=== PATIENT | female | born 1955 | race African-American/Black ===

== ENCOUNTER 2017-03-19 20:54 | Emergency (ER) | payer MEDICARE ==
[~2017-03-19] VITALS: Ht 157.5 cm; Wt 113.4 kg
[2017-03-19 21:05] VITALS: BP 117/70
[2017-03-19] MEDS ORDERED: Albuterol ud Inhalation ONE (22:24)
[2017-03-19] MEDS ORDERED: Ipratropium 0.02% Inh Soln 2.5ml UD ONE (22:24)
--- NOTE | 2017-03-19 22:26 | Emergency Room Report ---
History of Present Illness General Chief Complaint: Nosebleed Source: Patient Present Illness HPI Is a 61-year-old female with oxygen-dependent COPD. [facility] She presents with 2 day history of nosebleeding. Initially yesterday but more severe today. Mostly in the right side but now also the left. No other complaint. No nausea no vomiting. No trauma. No fever or chills. Not on anticoagulations. Allergies: Coded Allergies: No Known Allergies (Unverified , 03/19/17) Patient History Past Medical History: see triage record, old chart reviewed, HTN, COPD Past Surgical History: other Pertinent Family History: none Social History: Denies: drug use Last Menstrual Period: NA Now: No Immunizations: other Reviewed Nursing Documentation: PMH: Agreed, PSxH: Agreed Nursing Documentation-PMH Hx Hypertension: Yes - HYPERLIPIDEMIA Hx Pacemaker: Yes Hx COPD: Yes Review of Systems Eye: Denies: blurred vision, eye pain ENT: Denies: ear pain, nose congestion, throat swelling Respiratory: Denies: cough, shortness of breath Cardiovascular: Denies: chest pain, palpitations Gastrointestinal: Denies: abdominal pain, diarrhea, nausea, vomiting Musculoskeletal: Denies: back pain, joint pain Skin: Denies: rash Neurological: Denies: headache, numbness Endocrine: Denies: increased thirst, increased urine Hematologic/Lymphatic: Denies: easy bruising All Other Systems: negative except mentioned in HPI Physical Exam Vital Signs Date Time Temp Pulse Resp B/P Pulse Ox O2 Delivery O2 Flow Rate FiO2 03/19/17 20:49 117/70 vitals unremarkable. Sp02 EP Interpretation: reviewed, normal General Appearance: well appearing, no apparent distress, alert Head: normocephalic, atraumatic Eyes: bilateral eye EOMI, bilateral eye PERRL ENT: hearing grossly normal, normal pharynx, other - nose with large clots in right nare. Once removed, active bleeding anteriorly Neck: full range of motion, supple, no meningismus Respiratory: chest non-tender, normal breath sounds, decreased breath sounds Cardiovascular #1: regular rate, rhythm, no murmur Gastrointestinal: normal bowel sounds, non tender, no mass, no organomegaly, no bruit, non-distended Musculoskeletal: back normal, normal range of motion Psychiatric: mood/affect normal Skin: warm/dry Procedures Additional Procedure Procedure Narrative Procedure: Nasal packing Indication: Epistaxis Description: I patient blow her nose. Large clot came out of the right naris. There is active oozing and bleeding. I place a 5 cm Rhino rocket. This stop the bleeding. She tolerated procedure without a problem. Medical Decision Making Diagnostic Impression: Primary Impression: Epistaxis Additional Impressions: COPD exacerbation Morbid obesity with BMI of 45.0-49.9, adult ER Course patient with epistaxis. No trauma. Most likely secondary to dryness from her oxygen. We'll discharge home. Last Vital Signs Date Time Temp Pulse Resp B/P Pulse Ox O2 Delivery O2 Flow Rate FiO2 03/19/17 20:49 117/70 Status: improved Disposition: ER SNF Condition: Stable Patient Instructions: Nosebleed, [id number] Additional Instructions: Follow up with your doctor in 7 days. Packing removal in 3-4 days. Return if worse. LILLIANA MELÉNDEZ M.D. Mar 19, 2017 22:26
[2017-03-19] MEDS ORDERED: Albuterol ud Inhalation HHN ONE (22:30)
[2017-03-19] MEDS ORDERED: Ipratropium 0.02% Inh Soln 2.5ml UD HHN ONE (22:30)
[2017-03-19 23:00] VITALS: BP 120/74
[2017-03-20 01:00] VITALS: BP 128/78
== END 2017-03-20 01:00 ==
LOC: EDBD 20:54 → EMR 23:38
DX: R04.0 Epistaxis (principal); J44.1 Chronic obstructive pulmonary disease with (acute) exacerbation; E66.01 Morbid (severe) obesity due to excess calories; Z68.42 Body mass index [BMI] 45.0-49.9, adult; I10 Essential (primary) hypertension; E78.5 Hyperlipidemia, unspecified; Z95.0 Presence of cardiac pacemaker
CPT/HCPCS: 94640; 94664; 99283